=== PATIENT | male | born 1995 | race Caucasian/White ===

== ENCOUNTER 2017-04-09 14:31 | Emergency (ER) | payer OTHER ==
[~2017-04-09] VITALS: Ht 170.2 cm; Wt 131.0 kg
[2017-04-09 14:46] VITALS: TEMP 36.9; Ht 170.2 cm; Wt 131.0 kg
[2017-04-09] MEDS ORDERED: IBUPROFEN 600 MG TAB PO STA (15:50)
--- NOTE | 2017-04-09 16:27 | DIAGNOSTIC IMAGING REPORT ---
LEFT KNEE 3 VIEWS CLINICAL HISTORY: Fall with left knee pain. FINDINGS: AP, crosstable lateral, and sunrise views of the left knee are obtained. No prior studies are available for comparison at the time of dictation. The skeletal structures are well mineralized. No fracture is seen. The joint spaces of the knee are well-maintained. A calcified fabella is incidentally noted. A small joint effusion is observed. Mild soft tissue edema is noted around the knee IMPRESSION: Mild soft tissue swelling and joint effusion. No fracture is seen. Electronically signed by: Ryan Brasher M.D. 04/09/2017 4:26 PM Dictated Date/Time: 04/09/2017 4:25 PM
[2017-04-09] MEDS ORDERED: HYDR-5688 PO (16:43)
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
[2017-04-09 17:04] VITALS: BP 123/90; PULSE 93; O2SAT 97
== END 2017-04-09 17:05 | disposition home or self-care (01) ==
LOC: C.EDB 14:35 → C.EDD 17:05
DX: M25.562 Pain in left knee (principal)

== ENCOUNTER → 2017-11-16 | Outpatient (CLI) | payer OTHER ==
[~2017-11-16] MED LIST: ACET-1256 PO; ASPI81TA28 PO; OXYC-57 PO; OXYC1TAB3 PO
[2017-11-16 10:09] LABS: BASO % 0.4 %; BASO ABS # 0.03 K/uL (0-0.2); EOS % 3.4 %; EOS ABS # 0.24 K/uL (0-0.5); HEMATOCRIT 42.9 % (42-52); IG# 0.03 K/uL (0.00-0.02); LYMPH % 28.7 %; LYMPH ABS # 2.01 K/uL (1.2-3.4); MEAN CELL VOLUME 90.3 fL (80-100); MEAN CORPUSCULAR HEMOGLOBIN 31.6 pg (25-34); MEAN PLATELET VOLUME 11.6 fL (7.4-10.4); MONO % 9.9 %; MONO ABS # 0.69 K/uL (0.11-0.59); NEUT % 57.2 %; PLATELET COUNT 209 K/uL (130-400); RED CELL DISTRIBUTION WIDTH CV 12.9 % (11.5-14.5); RED CELL DISTRIBUTION WIDTH SD 42.5 fL (36.4-46.3)
[2017-11-16 10:19] LABS: BLOOD UREA NITROGEN 14 mg/dl (7-18); CALCIUM 9.3 mg/dl (8.5-10.1); CARBON DIOXIDE 31 mmol/L (21-32); CREATININE 1.15 mg/dl (0.60-1.40); GLUCOSE 89 mg/dl (70-99); SODIUM 138 mmol/L (136-145)
== END | disposition home or self-care (01) ==
LOC: C.LAB1850 08:57
PROVIDERS: ATTEND Orthopaedic Surgery Sports Medicine
DX: Z01.818 Encounter for other preprocedural examination (principal)

== ENCOUNTER 2017-11-23 11:56 | Day surgery (SDC) | payer OTHER ==
[2017-11-14 11:53] VITALS: Ht 172.7 cm; Wt 127.3 kg
--- NOTE | 2017-11-22 21:57 | History and Physical ---
History & Physical Date Nov 22, 2017. Chief Complaint left ankle pain History of Present Illness The patient is a 22 year old male with complaints of left ankle pain after a work injury sustained on 11.05.17. X-rays noted a left ankle tibial pilon fx. He has been splinted and kept NWB on the LLE. He is being set up for ORIF of the fx. Past Medical/Surgical History PMH: Obesity Past surgical hx: Right knee ACL/meniscus surgery in 2010, Left knee meniscus 2016 Social hx: Denies tobacco and alcohol use. Allergies Coded Allergies: No Known Allergies (Unverified , 11/14/17) Home Medications Scheduled PRN Acetaminophen (Tylenol), 500 MG PO DAILY PRN for Pain Oxycodone Ir (Roxicodone Ir), 5 MG PO HS PRN for Severe Pain Physical Examination Skin: warm/dry, no rash Eyes: normal inspection ENT: normal ENT inspection Head: normocephalic, atraumatic Neck: supple, no adenopathy, trachea midline Respiratory/Chest: lungs clear, normal breath sounds, no respiratory distress Cardiovascular: regular rate, rhythm, no murmur Abdomen / GI: normal bowel sounds, non tender Extremities: + pertinent finding (Left ankle: NWB LLE. +swelling of the ankle. No ROM or strength testing performed. Tender anterior ankle and distal tibia. ) Neurologic/Psych: no motor/sensory deficits, alert, oriented x 3 Diagnosis Left tibial pilon fx. Plan of Treatment Recommend an ORIF left tibial pilon fx. All potential risks, benefits, complications, alternatives, and rehab have been discussed and he wishes to proceed. He will be scheduled for 11.23.17 with plan for ASA 81 mg BID x 6 wks for DVT prophylaxis.
[~2017-11-23] VITALS: Ht 172.7 cm; Wt 127.3 kg
[~2017-11-23 11:56] MED LIST changes: -ASPI81TA28 PO; +CEFAZOLIN 3000MG IV PUSH 15 ML IV SCH; +LACTATED RINGER'S 1000ML 1,000 ML IV SCH; -OXYC-57 PO
[2017-11-23 12:26] VITALS: BP 158/93; PULSE 71; TEMP 36.9; O2SAT 98
[2017-11-23] MEDS ORDERED: MIDAZOLAM HCL 1 MG/ML 2ML VIAL ONE ×2 (14:31→14:32)
[2017-11-23] MEDS ORDERED: LIDOCAINE HCL 2% 2 ML VIAL (20MG/ML) ONE (14:31)
[2017-11-23] MEDS ORDERED: PROPOFOL IV EMULSION 10 MG/ML 20 ML VIAL IV ONE ×2 (14:31→17:33)
[2017-11-23] MEDS ORDERED: FENTANYL CITRATE INJ 50 MCG/1 ML 2 ML VIAL ONE ×4 (14:32→18:10)
[2017-11-23] MEDS ORDERED: ROCURONIUM BROMIDE 10 MG/ML 5 ML VIAL IV ONE (14:33)
[2017-11-23] MEDS ORDERED: ROPIVACAINE 0.5% 5 MG/ML 30 ML VIAL ONE (14:46)
[2017-11-23] MEDS ORDERED: BUPIVACAINE 0.25% 30 ML VIAL ONE (14:46)
[2017-11-23] MEDS ORDERED: BUPIVACAINE 0.5 % 5 MG/1 ML PF 10ML VIAL ONE ×2 (14:49→14:50)
[2017-11-23] MEDS ORDERED: EpINEphrine HCL INJ 1 MG/ML 5ML SYRINGE ONE (15:04)
[2017-11-23] MEDS ORDERED: BUPIVACAINE 0.5 % 5 MG/1 ML MPF 30ML VIAL ONE (15:04)
--- NOTE | 2017-11-23 15:05 | History & Physical Bridge Note ---
H&P Re-Evaluation Bridge Note: I have examined the patient, reviewed the History & Physical and in the interval since the performance of the History & Physical I have noted the following changes of clinical significance: No changes noted
[2017-11-23] MEDS ORDERED: BACITRACIN 50000 UNIT VIAL ONE (15:13)
--- NOTE | 2017-11-23 15:26 | Discharge Instructions ---
Discharge Instructions Date of Service Nov 23, 2017. Admission Reason for Admission: Displaced Pilon Closed Fracture Of Left Tibia Discharge Discharge Diagnosis / Problem: left tibial pilon fracture Discharge Goals Goal(s): Decrease discomfort, Improve function Activity Recommendations Activity Limitations: per Instructions/Follow-up section Weightbearing Status: Left non-weightbearing . Instructions / Follow-Up Instructions / Follow-Up ACTIVITY RECOMMENDATIONS: Limitations: No weight bearing to affected limb at all times. SPECIAL CARE INSTRUCTIONS: * Some drainage onto the dressing is normal and is no cause for alarm. * Some swelling is natural especially after walking. * When resting, keep your foot elevated above the level of your heart. * Call [facility] if you notice: -Increased drainage -Fever over 101 degrees F -Severe constant pain BANDAGE: * Leave bandage/cast in place unless otherwise directed. * Keep bandage/cast dry at all times. FOLLOW UP VISIT WITH DR. SHETTY If appointment is not already scheduled: Please call [facility] after you get home today to schedule a follow-up appointment for [address] Shetty at . Current Hospital Diet Patient's current hospital diet: Discharge Diet Recommended Diet: Regular Diet Pending Studies Studies pending at discharge: no Medical Emergencies . Who to Call and When: Medical Emergencies: If at any time you feel your situation is an emergency, please call [phone] immediately. . Non-Emergent Contact Non-Emergency issues call your: Surgeon Call Non-Emergent contact if: temperature is above 101, your pain is not controlled, your pain is worsening . "Provider Documentation" section prepared by Oscar Biggs. . VTE Core Measure Inpt VTE Proph given/why not?: SCD's
[2017-11-23] MEDS ORDERED: OXYC-57 PO (15:30)
[2017-11-23] MEDS ORDERED: ASPI81TA28 PO (15:30)
[2017-11-23] MEDS ORDERED: ONDANSETRON INJ 2 MG/ML 2 ML VIAL ONE (17:09)
[2017-11-23] MEDS ORDERED: DEXAMETHASONE SOD INJ 4 MG/ML VIAL ONE (17:09)
[2017-11-23] MEDS ORDERED: GLYCOPYRROLATE INJ 0.2 MG/ML VIAL ONE (17:09)
[2017-11-23] MEDS ORDERED: NEOSTIGMINE METHYLSULFATE 5 MG/5 ML SYR ONE (17:09)
--- NOTE | 2017-11-23 17:33 | [facility] Post Operative Brief Note ---
Immediate Operative Summary Operative Date Nov 23, 2017. Pre-Operative Diagnosis Left displaced intraarticular tibial pilon fracture Post-Operative Diagnosis Left displaced intraarticular tibial pilon fracture Procedure(s) Performed Left Open Reduction Internal Fixation Tibial Pilon Fracture with Synthes locking distal tibial plate Surgeon Dr Frederic Grande [employer] Physician Surgeon(s) Pao Biggs PA-C Estimated Blood Loss 4ml Findings See dict Specimens None per surgeon Drains None Anesthesia GETT w/ popliteal and adductor canal blocks Complication(s) None Disposition Recovery Room / PACU
--- NOTE | 2017-11-23 17:40 | DIAGNOSTIC IMAGING REPORT ---
L ANKLE 2 VIEWS CLINICAL HISTORY: LT ORIF TIBIAL PILON fracture TECHNIQUE: Image intensifier COMPARISON STUDY: None FINDINGS: Image intensifier was utilized for an operative procedure including internal fixation of the distal tibia. IMPRESSION: Image intensifier usage for orthopedic intraoperative planning purposes. The above report was generated using voice recognition software. It may contain grammatical, syntax or spelling errors. Electronically signed by: Cordell Bautista M.D. 11/23/2017 5:39 PM Dictated Date/Time: 11/23/2017 5:38 PM
[2017-11-23] MEDS ORDERED: HYDROmorphone INJ 2 MG/ML SYR/VIAL ONE (17:56)
[2017-11-23] MEDS ORDERED: OXYCODONE/ACETAMINOPHEN 5-325 TAB PO PRN (18:00)
[2017-11-23] MEDS ORDERED: HYDROmorphone INJ 1 MG/ML SYR ONE (18:10)
[2017-11-23] MEDS ORDERED: ACETAMINOPHEN 1000 MG/100 ML IV IV ONE ×2 (18:11→18:15)
[2017-11-23] MEDS ORDERED: KETOROLAC TROMETHAMINE 30 MG/ML VIAL ONE (18:11)
[2017-11-23] MEDS ORDERED: HYDROmorphone INJ 1 MG/ML SYR IV PRN (18:15)
[2017-11-23] MEDS ORDERED: ATROPINE SULFATE 0.1 MG/ML 5ML SYR IV PRN (18:15)
[2017-11-23] MEDS ORDERED: KETOROLAC TROMETHAMINE 30 MG/ML VIAL IV. PRN (18:15)
[2017-11-23] MEDS ORDERED: ONDANSETRON INJ 2 MG/ML 2 ML VIAL IV PRN (18:15)
[2017-11-23] MEDS ORDERED: FENTANYL CITRATE INJ 50 MCG/1 ML 2 ML VIAL IV PRN (18:15)
[2017-11-23] MEDS ORDERED: PROMETHAZINE HCL INJ 12.5 MG in SODIUM CHLORIDE 0.9% 50ML 50 ML IV PRN (18:15)
[2017-11-23] MEDS ORDERED: EpHEDrine SULFATE INJ 50 MG/ML AMP IV PRN (18:15)
--- NOTE | 2017-11-23 18:31 | Anesthesiology Progress Note ---
Anesthesia Post Op Note Date & Time Nov 23, 2017 at 18:31 Vital Signs Pain Intensity: 3 Vital Signs Past 12 Hours Date Time Temp Pulse Resp B/P (MAP) Pulse Ox O2 Delivery O2 Flow Rate FiO2 11/23/17 18:20 109 18 145/82 96 Oxymask 8 11/23/17 18:10 106 20 137/90 100 Oxymask 8 11/23/17 18:01 36.2 113 16 118/80 97 Oxymask 8 11/23/17 12:26 36.9 71 20 158/93 (114) 98 Room Air Notes Mental Status: alert / awake / arousable, participated in evaluation Pt Amnestic to Procedure: Yes Nausea / Vomiting: adequately controlled Pain: adequately controlled Airway Patency, RR, SpO2: stable & adequate BP & HR: stable & adequate Hydration State: stable & adequate Anesthetic Complications: no major complications apparent
[2017-11-23 18:48] VITALS: BP 140/71; PULSE 116; TEMP 36.9; O2SAT 99
[2017-11-23 19:20] VITALS: BP 132/72; PULSE 124; TEMP 36.9; O2SAT 97
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
== END 2017-11-23 19:45 | disposition home or self-care (01) ==
LOC: C.ACU 11:56
PROVIDERS: ATTEND Orthopaedic Surgery Sports Medicine
DX: S82.872A Displaced pilon fracture of left tibia, initial encounter for closed fracture (principal); V89.2XXA Person injured in unspecified motor-vehicle accident, traffic, initial encounter; I10 Essential (primary) hypertension; E66.01 Morbid (severe) obesity due to excess calories; Z98.890 Other specified postprocedural states; Z68.41 Body mass index [BMI] 40.0-44.9, adult; Z88.5 Allergy status to narcotic agent

== ENCOUNTER 2021-08-16 10:56 | Inpatient (IN) ==
[2021-08-16] MEDS ORDERED: ONDANSETRON INJ 2 MG/ML 2 ML VIAL IV STA (11:51)
[2021-08-16] MEDS ORDERED: SODIUM CHLORIDE 0.9% 1000ML 1,000 ML IV ONE (11:51)
[2021-08-16] MEDS ORDERED: ACETAMINOPHEN 1,000 MG/100 ML VIAL IV STA (11:51)
[2021-08-16 12:19] LABS: D Dimer 690 ug/L FEU (0-500)
[2021-08-16 12:23] LABS: Base Excess VBG 3.4 mEq/L; pH VBG 7.47 (7.36-7.41)
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
[2021-08-16 12:27] LABS: Alanine Aminotransferase 46 U/L (12-78); Albumin Level 3.6 gm/dl (3.4-5.0); Aspartate Aminotransferase 75 U/L (15-37); BUN Creatinine Ratio 16.7 (10-20); Blood Urea Nitrogen 19 mg/dl (7-18); Calcium 8.5 mg/dl (8.5-10.1); Carbon Dioxide 29 mmol/L (21-32); Chloride 97 mmol/L (98-107); Creatinine Clr Calc Pharmacy 126.5 ml/min; Est GFR (African American) 104.1 ml/min; Est GFR (Non-African American) 89.8 ml/min; Glucose 144 mg/dl (70-99); Potassium 3.1 mmol/L (3.5-5.1); Sodium 131 mmol/L (136-145)
[2021-08-16] MEDS ORDERED: dexAMETHasone 6 MG in SYRINGE 0 ML IV ONE (12:29)
[2021-08-16] MEDS ORDERED: ALBUT/IPRATROP 3MG/0.5MG NEB 3 ML VIAL NEB STA (12:29)
[2021-08-16 12:32] LABS: ALC (manual) 1.18 K/uL (1.2-3.4); ANC (manual) 3.09 K/uL (1.4-6.5); Albumin Globulin Ratio 0.8 (0.9-2); Alkaline Phosphatase 43 U/L (45-117); Bilirubin,Total 0.5 mg/dl (0.2-1); Globulin 4.3 gm/dl (2.5-4.0); Hematocrit (blood only) 44.1 % (42-52); Hemoglobin 15.8 g/dL (14.0-18.0); Lymphocytes # (manual) 0.57 K/uL (1.2-3.4); Lymphocytes % (manual) 12.2 %; Mean Corpuscular Hgb Conc 35.8 g/dL (32-36); Mean Corpuscular Volume 89.5 fL (80-100); Mean Platelet Volume 12.5 fL (7.4-10.4); Monocytes # (manual) 0.37 K/uL (0.11-0.59); Monocytes % (manual) 7.8 %; Myelocytes # (manual) 0.04 K/uL (0-0); Myelocytes % (manual) 0.9 %; Neutrophils # (manual) 3.09 K/uL (1.4-6.5); Neutrophils % (manual) 66.1 %; Platelet Count 107 K/uL (130-400); Platelet Estimate Decreased (Normal); RDW Coefficient of Variation 12.8 % (11.5-14.5); RDW Standard Deviation 41.8 fL (36.4-46.3); Reactive Lymphocytes # (manual) 0.61 K/uL; Red Blood Count 4.93 M/uL (4.7-6.1); Total Protein 7.9 gm/dl (6.4-8.2); Troponin I < 0.015 ng/ml (0-0.045); White Blood Count 4.68 K/uL (4.8-10.8)
[2021-08-16] MEDS ORDERED: POTASSIUM CHLORIDE / WTR 10 MEQ/100 ML PLCT IV ONE (12:41)
[2021-08-16] MEDS ORDERED: OPTIRAY 320 125ml IV ONE (12:56)
[2021-08-16] MEDS: DEXAMETHASONE SOD INJ 4 MG/ML VIAL ONE ×2 (13:04→14:42)
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
[2021-08-16 13:14] LABS: C Reactive Protein 2.85 mg/dl (0-0.29)
--- NOTE | 2021-08-16 13:15 | CT Scan Report ---
CT ANGIOGRAM OF THE CHEST CLINICAL HISTORY: Cough and dyspnea. Covid. COMPARISON STUDY: Chest x-ray performed the same day 08/16/2021. TECHNIQUE: Following the IV administration of 111 cc of Optiray 320, CT angiogram of the chest was pe rformed from the upper abdomen to the thoracic inlet utilizing the pulmonary embolus protocol. Images are reviewed in the axial, sagittal, and coronal planes. 3-D MIPS images are created and assessed. I V contrast was administered without complication. A dose lowering technique was utilized adhering to the principles of ALARA. There is suboptimal contrast opacification of the pulmonary arteries. CT DOSE: 777.88 mGy.cm FINDINGS: Thyroid: Imaged portions of the thyroid gland are normal in size and attenuation. A 14 mm low-attenua tion nodule is noted in the left lobe. Thoracic aorta: The thoracic aorta is normal in caliber and demonstrates standard 3-vessel arch anato my. No dissection is seen. Pulmonary vasculature: The pulmonary trunk is normal in caliber. There are no filling defects identif ied in main, lobar, or segmental pulmonary branches to suggest pulmonary embolus. Heart: The heart is normal in size and without pericardial effusion. Lungs and pleural spaces: Multifocal airspace consolidation is seen throughout both lungs, most confl uent at the lung bases. No pleural effusion is identified. The trachea and central airways are clear. There are scattered calcified granulomas. Mediastinum: There are mildly enlarged mediastinal lymph nodes. A subcarinal node measures 1.8 cm in short axis. High right peritracheal nodes measure up to 0.8 cm in short axis. Amanda: There is bilateral hilar adenopathy. Hilar nodes measure up to 1.4 cm in short axis. Axillae: There is no axillary lymphadenopathy. Upper abdomen: There is a small hiatal hernia. The distal esophagus appears circumferentially thick w alled. The liver is steatotic. The spleen is mildly enlarged measuring 14.6 cm in length. Skeletal structures: No lytic or blastic bony lesions are seen. IMPRESSION: 1. There is no evidence of pulmonary embolus in the main, lobar, or segmental pulmonary arteries. 2. Multifocal airspace consolidation is consistent with the reported history of a viral pneumonia. Ra diographic follow-up to resolution is recommended. 3. Mediastinal and hilar lymphadenopathy is likely reactive. 4. Splenomegaly. 5. The esophageal wall appears circumferentially thickened. Correlate clinically for evidence of esop hagitis. 6. Hepatic steatosis. ACT 112: Negative or not required by law. Electronically signed by: Ryan Brasher M.D. 08/16/2021 1:14 PM
--- NOTE | 2021-08-16 13:18 | XRay Report ---
SINGLE VIEW CHEST CLINICAL HISTORY: Cough. Covid. FINDINGS: An AP, portable, upright chest radiograph is obtained. No prior studies are available for c omparison at the time of dictation. The cardiomediastinal silhouette is unremarkable. There are low lung volumes. Multifocal airspace consolidation is seen throughout both lungs. No large pleural effus ion or pneumothorax is identified. The bony thorax is grossly intact. IMPRESSION: Multifocal airspace consolidation is consistent with the reported history of a viral pneu monia. Radiographic follow-up to resolution is recommended. ACT 112: Negative or not required by law. Electronically signed by: Ryan Brasher M.D. 08/16/2021 1:17 PM
[2021-08-16] MEDS ORDERED: REMDESIVIR 200 MG in SODIUM CHLORIDE 0.9% 210 ML IV STA (13:59)
[2021-08-16] MEDS ORDERED: POTASSIUM CHLORIDE / WTR 10 MEQ/100 ML PLCT IV STA (13:59)
[2021-08-16] MEDS ORDERED: ALBUTEROL 0.083% NEBU SOLN 3 ML VIAL NEB PRN (14:06)
[2021-08-16] MEDS: LACTATED RINGER'S 1,000 ML IV SCH ×2 (14:30→21:59)
[2021-08-16] MEDS ORDERED: ONDANSETRON INJ 2 MG/ML 2 ML VIAL IV PRN (20:31)
[2021-08-16] MEDS ORDERED: ACETAMINOPHEN 325 MG TAB PO PRN (20:31)
[2021-08-16] MEDS ORDERED: ALUMINUM/MAGNESIUM SUSP 30 ML UDC PO PRN (20:31)
[2021-08-16] MEDS ORDERED: LOPERAMIDE HCL 2 MG CAP PO PRN (20:31)
[2021-08-16] MEDS ORDERED: MAGNESIUM SULFATE / D5W 1 GM/100 ML BAG IV ONE (21:30)
[2021-08-16] MEDS: ENOXAPARIN INJ 40 MG/0.4 ML SYR SQ SCH (21:58)
[2021-08-16 22:00] LABS: Magnesium 2.2 mg/dl (1.8-2.4)
[2021-08-16] MEDS: SODIUM CHLORIDE 0.9% 10ML FLUSH IV SCH (22:09)
[2021-08-16] MEDS: POTASSIUM CHLORIDE / WTR 10 MEQ/100 ML PLCT IV SCH (22:49)
[2021-08-17] MEDS: POTASSIUM CHLORIDE / WTR 10 MEQ/100 ML PLCT IV SCH ×3 (00:57→04:44)
[2021-08-17] MEDS ORDERED: COUGH DROP (SUGAR FREE) LOZ 24 LOZ/1 BOX BUCCAL PRN (02:43)
[2021-08-17] MEDS ORDERED: COUGH DROP (SUGAR FREE) LOZ 24 LOZ/1 BOX BUCCAL ONE (02:48)
[2021-08-17] MEDS ORDERED: POTASSIUM CHLORIDE / WTR 10 MEQ/100 ML PLCT IV SCH (04:45)
--- NOTE | 2021-08-17 07:33 | Hospitalist Progress Note ---
Date of Service August 17, 2021 Assessment & Plan (1) Pneumonia due to COVID-19 virus: Plan: Patient with symptoms that started on 08/08, here with pneumonia and acute respiratory failure with hypoxia, severe dehydration secondary to nausea/vomiting/diarrhea CT angiogram chest negative for PE but shows multifocal pneumonia slight increase in oxygen requirements, up to 6-7 L today could not lay prone, severe coughing spells immediately told him he needs to lay on his side if he cannot lay prone -Admit to medical floor telemetry on Covid unit -Continue dexamethasone 6 mg IV once daily, day 2 -Remdesivir x5-day course, day 3 -Continue supplemental O2 to keep pulse ox greater than 92% -Albuterol nebulizer as needed -Robitussin-DM ordered as needed as well as Tessalon Perles for cough flutter valve, incentive spirometer (2) Acute respiratory failure with hypoxia: Plan: As above oxygen requirements going up slightly continue to monitor (3) Nausea vomiting and diarrhea: Plan: Secondary to Covid-19, with significant hyponatremia, hypokalemia, and inability to tolerate any p.o. except for small sips of water for several days Fortunately renal function is stable Received 1 L normal saline in the ER, will give 2 more liters of LR Cr stable, K stable IV Zofran as needed for vomiting Add Imodium as needed for diarrhea (4) Thrombocytopenia: Plan: Platelets mildly low at 107 secondary to COVID-19 pneumonia plts up to 123k today Okay to give Lovenox for DVT prophylaxis unless platelets drop less than 50 (5) Hyponatremia: Plan: As above, secondary to dehydration Sodium is 137 (6) Hypokalemia: Plan: As above, secondary to GI losses and poor p.o. intake Give a total of 50 mEq of potassium chloride IV K is 3.9 today (7) Transaminitis: Plan: Mild, secondary to Covid-19, but also has underlying fatty liver AST minimally elevated, ALT normal (8) Fatty liver: Plan: Noted on CT abdomen/pelvis BMI is 40.6 Encouraged weight loss and low carbohydrate diet after discharge (9) Thyroid nodule: Plan: Incidentally noted left lobe of the thyroid nodule measuring 1.4 cm Recommended to patient that he have an outpatient thyroid ultrasound and follow- up with PCP TSH normal at 0.9 (10) Obesity: Plan: BMI 40.6 As above, recommended weight loss (11) Splenomegaly: Plan: Patient with mild to moderate splenomegaly seen on CT abdomen/pelvis Unclear if could be from viral infection but could be chronic from fatty liver Follow as an outpatient Plan: DVT prophylaxis-Lovenox 40 mg SQ twice daily Disposition-admit to medical floor telemetry on Covid [place] Admission and Anticipated Discharge Date Admission Date: August 16, 2021 Subjective patient is slowly requiring more oxygen, he tried to lay prone but it triggered intense coughing he can lay on his left side eating okay, some nausea but no vomiting had some diarrhea again this morning, took him 10 minutes to clean himself, he was very short of breath afterwards has some coughing spells but not intense reviewed chart, reviewed labs discussed that he needs to take this one day at a time, don't be alarmed if he needs more oxygen before he gets better Review of Systems 2 Review of Systems: All systems reviewed & are unremarkable except as noted in Subjective Constitutional: + body aches, + fatigue and + weakness; no fever Respiratory: + cough and + dyspnea Cardiovascular: no chest pain and no edema Gastrointestinal: + nausea and + diarrhea/loose stools; no abdominal pain, no vomiting, no constipation, no blood in stools and no melena Physical Exam Physical Exam: General: well developed, well nourished, no acute distress, ill appearing, diaphoretic Neck: supple, trachea midline, normal thyroid Lungs: crackles bilaterally, + tachypnea, slight accessory muscle use, no distress Heart: regular S1 and S2, no murmur, peripheral pulses normal, capillary refill normal, no edema Abdomen: soft, NT, ND, + BS, no hepatomegaly, normal to percussion Extremities: normal in appearance, no cyanosis, no petechiae, strength is 5/5 bilaterally Neuro: awake, cooperative, moves all extremities, no focal motor deficits, CN II-XII intact, sensation in extremities intact, normal speech Skin: warm, dry, no rash, normal turgor Psych: Awake, alert oriented x 3, euthymic affect Results & Data Results & Data ([facility]) Vital Signs (Past 12 Hours) Vital Signs Temp Pulse Pulse Resp BP Pulse Ox 08/17/21 04:28 37.0 C 84 21 128/69 91 08/16/21 23:28 37.1 C 80 20 108/65 91 08/16/21 23:00 83 08/16/21 20:33 37 C 88 18 131/77 93 08/16/21 20:09 141/82 H Laboratory Results Laboratory Results - last 24 hr 08/16/21 08/17/21 08/17/21 11:30 06:45 06:45 WBC 6.32 RBC 4.71 Hgb 15.0 Hct 42.5 MCV 90.2 MCH 31.8 MCHC 35.3 RDW Std Deviation 42.8 RDW Coeff of Michael 12.9 Plt Count 123 L MPV 12.1 H Immature Gran % (Auto) 0.3 Neut % (Auto) 73.4 Lymph % (Auto) 17.6 Frederick % (Auto) 8.5 Eos % (Auto) 0.0 Baso % (Auto) 0.2 Neut # (Auto) 4.64 Lymph # (Auto) 1.11 L Frederick # (Auto) 0.54 Eos # (Auto) 0.00 Baso # (Auto) 0.01 Immature Gran # (Auto) 0.02 Sodium 137 Potassium 3.9 D Chloride 102 Carbon Dioxide 28 Anion Gap 7.0 BUN 16 Creatinine 0.85 Est Cr Clr Drug Dosing 168.9 Est GFR ( Amer) 140.4 Est GFR (Non-Af Amer) 121.1 BUN/Creatinine Ratio 18.4 Glucose 120 H Calcium 8.4 L Magnesium 2.2 2.6 H Total Bilirubin 0.5 AST 68 H ALT 52 Alkaline Phosphatase 38 L C-Reactive Protein 2.09 H Total Protein 7.0 Albumin 3.1 L Globulin 3.9 Albumin/Globulin Ratio 0.8 L Procalcitonin TSH 0.934 08/17/21 06:45 WBC RBC Hgb Hct MCV MCH MCHC RDW Std Deviation RDW Coeff of Michael Plt Count MPV Immature Gran % (Auto) Neut % (Auto) Lymph % (Auto) Frederick % (Auto) Eos % (Auto) Baso % (Auto) Neut # (Auto) Lymph # (Auto) Frederick # (Auto) Eos # (Auto) Baso # (Auto) Immature Gran # (Auto) Sodium Potassium Chloride Carbon Dioxide Anion Gap BUN Creatinine Est Cr Clr Drug Dosing Est GFR ( Amer) Est GFR (Non-Af Amer) BUN/Creatinine Ratio Glucose Calcium Magnesium Total Bilirubin AST ALT Alkaline Phosphatase C-Reactive Protein Total Protein Albumin Globulin Albumin/Globulin Ratio Procalcitonin < 0.05 TSH Medications Administered Current Inpatient Medications Acetaminophen (Acetaminophen 325 Mg Tab) 650 mg PO Q4H PRN PRN Reason: Pain or Fever Stop: 09/15/21 20:30 Al Hydrox/Mg Hydrox/Simethicone (Aluminum/Magnesium Susp 30 Ml Udc) 15 ml PO Q4H PRN PRN Reason: Dyspepsia Stop: 09/15/21 20:30 Albuterol (Albuterol 0.083% Nebu Soln 3 Ml Vial) 2.5 mg NEB Q6R PRN PRN Reason: cough or SOB Stop: 09/15/21 14:05 Benzonatate (Benzonatate 100 Mg Capsule) 100 mg PO TID PRN PRN Reason: Cough Stop: 09/15/21 20:30 Enoxaparin Sodium (Enoxaparin Inj 40 Mg/0.4 Ml Syr) 40 mg SQ Q12H TATI Stop: 09/15/21 20:30 Last Admin: 08/17/21 21:09 Dose: 40 mg Documented by: Guaifenesin/Dextromethorphan (Guaifenesin/Dextrom Syrup 200mg/20mg 10ml Udc) 10 ml PO Q6H PRN PRN Reason: Cough Stop: 09/15/21 20:30 Last Admin: 08/17/21 07:41 Dose: 10 ml Documented by: Remdesivir 100 mg/ Sodium (Chloride) 250 mls @ 250 mls/hr IV Q24H TATI; Protocol Stop: 08/20/21 12:59 Last Infusion: 08/17/21 13:27 Dose: Infused Documented by: Dexamethasone 6 mg/ Syringe 1.5 mls @ 1 mls/min IV DAILY TATI Stop: 08/26/21 08:59 Last Admin: 08/17/21 09:20 Dose: 1 mls/min Documented by: Loperamide HCl (Loperamide Hcl 2 Mg Cap) 2 mg PO Q6 PRN PRN Reason: diarrhea Stop: 09/15/21 20:30 Menthol (Cough Drop (Sugar Free) Sheba 24 Sheba/1 Box) 1 sheba BUCCAL PRN PRN PRN Reason: Sore Throat Stop: 09/16/21 02:42 Ondansetron HCl (Ondansetron Inj 2 Mg/Ml 2 Ml Vial) 4 mg IV Q6H PRN PRN Reason: Nausea Stop: 09/15/21 20:30 Sodium Chloride (Sodium Chloride 0.9% 10ml Flush) 30 ml IV Q24H TATI Stop: 08/20/21 20:32 Last Admin: 08/17/21 13:27 Dose: 30 ml Documented by: PG Care Time/CCT Total # of Minutes Spent Total Time Spent with Patient: Total time spent is greater than 50% in coordination of care (as documented) at patient's floor/unit and/or counseling patient: Coding Level of Care Code 37074 Subseq Hosp Care Lvl 3 Diagnoses Pneumonia due to COVID-19 virus U07.1; J12.82 Acute respiratory failure with hypoxia J96.01 Nausea vomiting and diarrhea R11.2; R19.7 Thrombocytopenia D69.6 Hyponatremia E87.1 Hypokalemia E87.6 Transaminitis R74.01 Fatty liver K76.0 Thyroid nodule E04.1 Obesity E66.9 Splenomegaly R16.1
[2021-08-17 07:37] LABS: Albumin Level 3.1 gm/dl (3.4-5.0); BUN Creatinine Ratio 18.4 (10-20); Calcium 8.4 mg/dl (8.5-10.1); Creatinine Clr Calc Pharmacy 168.9 ml/min; Est GFR (African American) 140.4 ml/min; Est GFR (Non-African American) 121.1 ml/min; Magnesium 2.6 mg/dl (1.8-2.4); Potassium 3.9 mmol/L (3.5-5.1)
[2021-08-17] MEDS: guaiFENesin/DEXTROM SYRUP 200MG/20MG 10ML UDC PO PRN (07:41)
[2021-08-17 07:47] LABS: Albumin Globulin Ratio 0.8 (0.9-2); Basophils # (auto) 0.01 K/uL (0-0.2); Basophils % (auto) 0.2 %; Bilirubin,Total 0.5 mg/dl (0.2-1); C Reactive Protein 2.09 mg/dl (0-0.29); Globulin 3.9 gm/dl (2.5-4.0); Hematocrit (blood only) 42.5 % (42-52); Immature Granulocytes # (auto) 0.02 K/uL (0.00-0.02); Immature Granulocytes % (auto) 0.3 %; Lymphocytes # (auto) 1.11 K/uL (1.2-3.4); Lymphocytes % (auto) 17.6 %; Mean Corpuscular Hemoglobin 31.8 pg (25-34); Mean Corpuscular Hgb Conc 35.3 g/dL (32-36); Mean Corpuscular Volume 90.2 fL (80-100); Mean Platelet Volume 12.1 fL (7.4-10.4); Monocytes # (auto) 0.54 K/uL (0.11-0.59); Monocytes % (auto) 8.5 %; Neutrophils # (auto) 4.64 K/uL (1.4-6.5); Neutrophils % (auto) 73.4 %; Platelet Count 123 K/uL (130-400); RDW Coefficient of Variation 12.9 % (11.5-14.5); RDW Standard Deviation 42.8 fL (36.4-46.3); Red Blood Count 4.71 M/uL (4.7-6.1); Thyroid Stimulating Hormone 0.934 uIu/ml (0.300-4.500); White Blood Count 6.32 K/uL (4.8-10.8)
[2021-08-17] MEDS: ENOXAPARIN INJ 40 MG/0.4 ML SYR SQ SCH ×2 (09:20→21:09)
[2021-08-17] MEDS: dexAMETHasone 6 MG in SYRINGE 0 ML IV SCH (09:20)
[2021-08-17] MEDS: REMDESIVIR 100 MG in SODIUM CHLORIDE 0.9% 230 ML IV SCH (11:36)
[2021-08-17] MEDS: SODIUM CHLORIDE 0.9% 10ML FLUSH IV SCH (13:27)
--- NOTE | 2021-08-17 14:04 | Electrocardiogram Report ---
Test Reason : Blood Pressure : / mmHG Vent. Rate : 114 BPM Atrial Rate : 114 BPM P-R Int : 124 ms QRS Dur : 090 ms QT Int : 316 ms P-R-T Axes : 030 014 023 degrees QTc Int : 435 ms Sinus tachycardia Otherwise normal ECG No previous ECGs available Confirmed by Tip Hollins ([id number]) on 08/17/2021 2:04:27 PM Referred By: REFERRED SELF Confirmed By:Tip Hollins
[2021-08-18 07:40] LABS: Alanine Aminotransferase 69 U/L (12-78); Aspartate Aminotransferase 65 U/L (15-37)
[2021-08-18] MEDS: guaiFENesin/DEXTROM SYRUP 200MG/20MG 10ML UDC PO PRN (08:20)
[2021-08-18] MEDS: BENZONATATE 100 MG CAPSULE PO PRN (08:20)
[2021-08-18] MEDS: ENOXAPARIN INJ 40 MG/0.4 ML SYR SQ SCH ×2 (08:20→21:48)
[2021-08-18] MEDS: dexAMETHasone 6 MG in SYRINGE 0 ML IV SCH (08:20)
--- NOTE | 2021-08-18 09:44 | Hospitalist Progress Note ---
Date of Service August 18, 2021 Assessment & Plan (1) Pneumonia due to COVID-19 virus: Plan: Patient with symptoms that started on 08/08, here with pneumonia and acute respiratory failure with hypoxia, severe dehydration secondary to nausea/vomiting/diarrhea CT angiogram chest negative for PE but shows multifocal pneumonia up to 8L mask, but not in distress, able to walk in the room without desaturating laying on left side could not lay prone, severe coughing spells immediately -Continue dexamethasone 6 mg IV once daily, day 3 -Remdesivir x5-day course, day 3 -Continue supplemental O2 to keep pulse ox greater than 92% -Albuterol nebulizer as needed -Robitussin-DM ordered as needed as well as Tessalon Perles for cough flutter valve, incentive spirometer (2) Acute respiratory failure with hypoxia: Plan: As above oxygen requirements going up slightly to 8L mask but not working hard to breathe continue to monitor (3) Nausea vomiting and diarrhea: Plan: Secondary to Covid-19, with significant hyponatremia, hypokalemia, and inability to tolerate any p.o. except for small sips of water for several days Fortunately renal function is stable Received 3L of crystalloid total Cr stable, K stable IV Zofran as needed for vomiting Add Imodium as needed for diarrhea - less frequent today (4) Thrombocytopenia: Plan: Platelets mildly low at 107 secondary to COVID-19 pneumonia plts up to 123k yesterday Okay to give Lovenox for DVT prophylaxis unless platelets drop less than 50 (5) Hyponatremia: Plan: As above, secondary to dehydration resolved BMP tomorrow (6) Hypokalemia: Plan: As above, secondary to GI losses and poor p.o. intake Give a total of 50 mEq of potassium chloride IV K 3.9 yesterday BMP tomorrow (7) Transaminitis: Plan: Mild, secondary to Covid-19, but also has underlying fatty liver AST and ALT normal (8) Fatty liver: Plan: Noted on CT abdomen/pelvis BMI is 40.6 Encouraged weight loss and low carbohydrate diet after discharge (9) Thyroid nodule: Plan: Incidentally noted left lobe of the thyroid nodule measuring 1.4 cm Recommended to patient that he have an outpatient thyroid ultrasound and follow- up with PCP TSH normal at 0.9 (10) Obesity: Plan: BMI 40.6 As above, recommended weight loss (11) Splenomegaly: Plan: Patient with mild to moderate splenomegaly seen on CT abdomen/pelvis Unclear if could be from viral infection but could be chronic from fatty liver Follow as an outpatient Plan: DVT prophylaxis-Lovenox 40 mg SQ twice daily Disposition- continue on COVID floor Admission and Anticipated Discharge Date Admission Date: August 16, 2021 Subjective patient feeling a little better today less diarrhea, both volume and frequency he stood up for about 10-15 minutes this morning, got washed up, did not feel short of breath at all he is on 8L mask, saturations 92-94% while I was in the room AST and ALT essentially normal today encouraged him to try to eat, will advance his diet today check labs tomorrow had a productive coughing spell this morning, got up a lot more sputum, using flutter valve Review of Systems Review of Systems: All systems reviewed & are unremarkable except as noted in Subjective Constitutional: + fatigue; no fever and no weakness Respiratory: + cough, + chest congestion and + sputum production; no dyspnea, no dyspnea on exertion and no pain with cough Physical Exam Physical Exam: General: well developed, well nourished, no acute distress, ill appearing, diaphoretic Neck: supple, trachea midline, normal thyroid Lungs: crackles bilaterally, + tachypnea, slight accessory muscle use, no distress Heart: regular S1 and S2, no murmur, peripheral pulses normal, capillary refill normal, no edema Abdomen: soft, NT, ND, + BS, no hepatomegaly, normal to percussion Extremities: normal in appearance, no cyanosis, no petechiae, strength is 5/5 bilaterally Neuro: awake, cooperative, moves all extremities, no focal motor deficits, CN II-XII intact, sensation in extremities intact, normal speech Skin: warm, dry, no rash, normal turgor Psych: Awake, alert oriented x 3, euthymic affect Results & Data Results & Data ([facility]) Vital Signs (Past 12 Hours) Vital Signs Temp Pulse Pulse Resp BP Pulse Ox 08/18/21 07:47 36.7 C 76 20 120/73 90 08/18/21 03:49 36.6 C 84 22 114/77 92 08/18/21 00:09 36.6 C 88 22 117/78 92 08/18/21 00:00 77 Laboratory Results Laboratory Results - last 24 hr 08/18/21 06:32 AST 65 H ALT 69 Medications Administered Current Inpatient Medications Acetaminophen (Acetaminophen 325 Mg Tab) 650 mg PO Q4H PRN PRN Reason: Pain or Fever Stop: 09/15/21 20:30 Al Hydrox/Mg Hydrox/Simethicone (Aluminum/Magnesium Susp 30 Ml Udc) 15 ml PO Q4H PRN PRN Reason: Dyspepsia Stop: 09/15/21 20:30 Albuterol (Albuterol 0.083% Nebu Soln 3 Ml Vial) 2.5 mg NEB Q6R PRN PRN Reason: cough or SOB Stop: 09/15/21 14:05 Benzonatate (Benzonatate 100 Mg Capsule) 100 mg PO TID PRN PRN Reason: Cough Stop: 09/15/21 20:30 Last Admin: 08/18/21 08:20 Dose: 100 mg Documented by: Enoxaparin Sodium (Enoxaparin Inj 40 Mg/0.4 Ml Syr) 40 mg SQ Q12H TATI Stop: 09/15/21 20:30 Last Admin: 08/18/21 08:20 Dose: 40 mg Documented by: Guaifenesin/Dextromethorphan (Guaifenesin/Dextrom Syrup 200mg/20mg 10ml Udc) 10 ml PO Q6H PRN PRN Reason: Cough Stop: 09/15/21 20:30 Last Admin: 08/18/21 08:20 Dose: 10 ml Documented by: Remdesivir 100 mg/ Sodium (Chloride) 250 mls @ 250 mls/hr IV Q24H TATI; Protocol Stop: 08/20/21 12:59 Last Infusion: 08/17/21 13:27 Dose: Infused Documented by: Dexamethasone 6 mg/ Syringe 1.5 mls @ 1 mls/min IV DAILY TATI Stop: 08/26/21 08:59 Last Admin: 08/18/21 08:20 Dose: 1 mls/min Documented by: Loperamide HCl (Loperamide Hcl 2 Mg Cap) 2 mg PO Q6 PRN PRN Reason: diarrhea Stop: 09/15/21 20:30 Menthol (Cough Drop (Sugar Free) Sheba 24 Sheba/1 Box) 1 sheba BUCCAL PRN PRN PRN Reason: Sore Throat Stop: 09/16/21 02:42 Ondansetron HCl (Ondansetron Inj 2 Mg/Ml 2 Ml Vial) 4 mg IV Q6H PRN PRN Reason: Nausea Stop: 09/15/21 20:30 Sodium Chloride (Sodium Chloride 0.9% 10ml Flush) 30 ml IV Q24H TATI Stop: 08/20/21 20:32 Last Admin: 08/17/21 13:27 Dose: 30 ml Documented by: PG Care Time/CCT Total # of Minutes Spent Total Time Spent with Patient: Total time spent is greater than 50% in coordination of care (as documented) at patient's floor/unit and/or counseling patient: Coding Level of Care Code 43314 Subseq Hosp Care Lvl 3 Diagnoses Pneumonia due to COVID-19 virus U07.1; J12.82 Acute respiratory failure with hypoxia J96.01 Nausea vomiting and diarrhea R11.2; R19.7 Thrombocytopenia D69.6 Hyponatremia E87.1 Hypokalemia E87.6 Transaminitis R74.01 Fatty liver K76.0 Thyroid nodule E04.1 Obesity E66.9 Splenomegaly R16.1
[2021-08-18] MEDS: REMDESIVIR 100 MG in SODIUM CHLORIDE 0.9% 230 ML IV SCH (12:12)
[2021-08-18] MEDS: SODIUM CHLORIDE 0.9% 10ML FLUSH IV SCH (13:19)
[2021-08-19] MEDS ORDERED: FUROSEMIDE 20 MG in SYRINGE 0 ML IV ONE (07:24)
[2021-08-19] MEDS ORDERED: FUROSEMIDE 40 MG/4 ML VIAL IV ONE (07:30)
[2021-08-19 07:54] LABS: Hematocrit (blood only) 43.5 % (42-52); Mean Corpuscular Hemoglobin 31.2 pg (25-34); Mean Corpuscular Hgb Conc 34.5 g/dL (32-36); Mean Corpuscular Volume 90.4 fL (80-100); Mean Platelet Volume 12.2 fL (7.4-10.4); Platelet Count 171 K/uL (130-400); RDW Coefficient of Variation 13.1 % (11.5-14.5); RDW Standard Deviation 43.7 fL (36.4-46.3); Red Blood Count 4.81 M/uL (4.7-6.1); White Blood Count 5.58 K/uL (4.8-10.8)
[2021-08-19] MEDS: dexAMETHasone 6 MG in SYRINGE 0 ML IV SCH (08:09)
[2021-08-19] MEDS: BENZONATATE 100 MG CAPSULE PO PRN (08:09)
[2021-08-19] MEDS: ENOXAPARIN INJ 40 MG/0.4 ML SYR SQ SCH ×2 (08:09→21:03)
[2021-08-19] MEDS: guaiFENesin/DEXTROM SYRUP 200MG/20MG 10ML UDC PO PRN (08:09)
[2021-08-19 08:22] LABS: BUN Creatinine Ratio 28.7 (10-20); C Reactive Protein 0.62 mg/dl (0-0.29); Calcium 8.7 mg/dl (8.5-10.1); Creatinine Clr Calc Pharmacy 175.9 ml/min; Est GFR (African American) 142.4 ml/min; Est GFR (Non-African American) 122.9 ml/min; Potassium 3.4 mmol/L (3.5-5.1)
--- NOTE | 2021-08-19 09:21 | XRay Report ---
XR chest 1V portable HISTORY: covid pneumonia COMPARISON: Chest 08/16/2021. FINDINGS: Multifocal bilateral airspace opacities have slightly progressed. There are low lung volume s. No pneumothorax. No pleural fusions. The heart is normal in size. Bilateral hilar lymphadenopathy is again noted. No rib fractures. IMPRESSION: Mild progression of the multifocal patchy bilateral airspace opacities consistent with a viral pneumo manuela. ACT 112: Negative or not required by law. Electronically signed by: Medardo Reno M.D. 08/19/2021 9:19 AM
[2021-08-19] MEDS: REMDESIVIR 100 MG in SODIUM CHLORIDE 0.9% 230 ML IV SCH (12:01)
--- NOTE | 2021-08-19 12:37 | Hospitalist Progress Note ---
Date of Service August 19, 2021 Assessment & Plan (1) Pneumonia due to COVID-19 virus: Plan: Patient with symptoms that started on 08/08, here with pneumonia and acute respiratory failure with hypoxia, severe dehydration secondary to nausea/vomiting/diarrhea CT angiogram chest negative for PE but shows multifocal pneumonia down to 4L NC this morning from 8-9L this morning great response to Lasix 20mg IV laying on left side could not lay prone, severe coughing spells immediately -Continue dexamethasone 6 mg IV once daily, day 4 -Remdesivir x5-day course, day 4 -Continue supplemental O2 to keep pulse ox greater than 92% -Albuterol nebulizer as needed -Robitussin-DM ordered as needed as well as Tessalon Perles for cough flutter valve, incentive spirometer move to medical floor as he is stable on monitor and down to 4L hope he can be discharged in a few days (2) Acute respiratory failure with hypoxia: Plan: As above oxygen requirements down to 4L, great response to Lasix give Lasix again tomorrow continue dexamethasone (3) Nausea vomiting and diarrhea: Plan: Secondary to Covid-19, with significant hyponatremia, hypokalemia, and inability to tolerate any p.o. except for small sips of water for several days Fortunately renal function is stable Received 3L of crystalloid total Cr stable, K stable IV Zofran as needed for vomiting Add Imodium as needed for diarrhea - less frequent today (4) Thrombocytopenia: Plan: Platelets mildly low at 107 secondary to COVID-19 pneumonia plts up to 171k today Okay to give Lovenox for DVT prophylaxis unless platelets drop less than 50 (5) Hyponatremia: Plan: As above, secondary to dehydration resolved (6) Hypokalemia: Plan: K is 3.4, add PO replacement BMP tomorrow (7) Transaminitis: Plan: Mild, secondary to Covid-19, but also has underlying fatty liver AST and ALT normal (8) Fatty liver: Plan: Noted on CT abdomen/pelvis BMI is 40.6 Encouraged weight loss and low carbohydrate diet after discharge (9) Thyroid nodule: Plan: Incidentally noted left lobe of the thyroid nodule measuring 1.4 cm Recommended to patient that he have an outpatient thyroid ultrasound and follow- up with PCP TSH normal at 0.9 (10) Obesity: Plan: BMI 40.6 As above, recommended weight loss (11) Splenomegaly: Plan: Patient with mild to moderate splenomegaly seen on CT abdomen/pelvis Unclear if could be from viral infection but could be chronic from fatty liver Follow as an outpatient Plan: DVT prophylaxis-Lovenox 40 mg SQ twice daily Disposition- move to [facility] hope to discharge by Tuesday 08/21 Admission and Anticipated Discharge Date Admission Date: August 16, 2021 Subjective patient doing well, down to 4L today on nasal canula responded really well to Lasix this morning, filled up two urinals breathing easier today stools are becoming more solid today which is good, no nausea/vomiting, tolerating diet no fever/chills, Cr and K stable, CRP is < 1 this morning hoping to be discharged in 2 more days, depends on how quickly we can get him down to room air Review of Systems Review of Systems: All systems reviewed & are unremarkable except as noted in Subjective Physical Exam Physical Exam: General: well developed, well nourished, no acute distress, comfortable Neck: supple, trachea midline, normal thyroid Lungs: lungs clear bilaterally, normal respiratory effort, no accessory muscle use, no distress Heart: regular S1 and S2, no murmur, peripheral pulses normal, capillary refill normal, no edema Abdomen: soft, NT, ND, + BS, no hepatomegaly, normal to percussion Extremities: normal in appearance, no cyanosis, no petechiae, strength is 5/5 bilaterally Neuro: awake, cooperative, moves all extremities, no focal motor deficits, CN II-XII intact, sensation in extremities intact, normal speech Skin: warm, dry, no rash, normal turgor Psych: Awake, alert oriented x 3, euthymic affect Results & Data Results & Data ([facility]) Vital Signs (Past 12 Hours) Vital Signs Temp Pulse Pulse Resp BP Pulse Ox 08/19/21 11:42 36.5 C 77 20 107/58 L 92 08/19/21 08:00 36.6 C 67 68 20 117/74 93 08/19/21 06:21 70 08/19/21 04:30 37.1 C 78 20 123/74 89 L Laboratory Results Laboratory Results - last 24 hr 08/19/21 08/19/21 07:09 07:09 WBC 5.58 RBC 4.81 Hgb 15.0 Hct 43.5 MCV 90.4 MCH 31.2 MCHC 34.5 RDW Std Deviation 43.7 RDW Coeff of Michael 13.1 Plt Count 171 MPV 12.2 H Sodium 142 Potassium 3.4 L Chloride 106 Carbon Dioxide 29 Anion Gap 7.0 BUN 24 H Creatinine 0.82 Est Cr Clr Drug Dosing 175.9 Est GFR ( Amer) 142.4 Est GFR (Non-Af Amer) 122.9 BUN/Creatinine Ratio 28.7 H Glucose 102 H Calcium 8.7 AST 65 H ALT 99 H C-Reactive Protein 0.62 H Medications Administered Current Inpatient Medications Acetaminophen (Acetaminophen 325 Mg Tab) 650 mg PO Q4H PRN PRN Reason: Pain or Fever Stop: 09/15/21 20:30 Al Hydrox/Mg Hydrox/Simethicone (Aluminum/Magnesium Susp 30 Ml Udc) 15 ml PO Q4H PRN PRN Reason: Dyspepsia Stop: 09/15/21 20:30 Albuterol (Albuterol 0.083% Nebu Soln 3 Ml Vial) 2.5 mg NEB Q6R PRN PRN Reason: cough or SOB Stop: 09/15/21 14:05 Benzonatate (Benzonatate 100 Mg Capsule) 100 mg PO TID PRN PRN Reason: Cough Stop: 09/15/21 20:30 Last Admin: 08/19/21 08:09 Dose: 100 mg Documented by: Enoxaparin Sodium (Enoxaparin Inj 40 Mg/0.4 Ml Syr) 40 mg SQ Q12H TATI Stop: 09/15/21 20:30 Last Admin: 08/19/21 08:09 Dose: 40 mg Documented by: Guaifenesin/Dextromethorphan (Guaifenesin/Dextrom Syrup 200mg/20mg 10ml Udc) 10 ml PO Q6H PRN PRN Reason: Cough Stop: 09/15/21 20:30 Last Admin: 08/19/21 08:09 Dose: 10 ml Documented by: Remdesivir 100 mg/ Sodium (Chloride) 250 mls @ 250 mls/hr IV Q24H TATI; Protocol Stop: 08/20/21 12:59 Last Admin: 08/19/21 12:01 Dose: 250 mls/hr Documented by: Dexamethasone 6 mg/ Syringe 1.5 mls @ 1 mls/min IV DAILY TATI Stop: 08/26/21 08:59 Last Admin: 08/19/21 08:09 Dose: 1 mls/min Documented by: Loperamide HCl (Loperamide Hcl 2 Mg Cap) 2 mg PO Q6 PRN PRN Reason: diarrhea Stop: 09/15/21 20:30 Menthol (Cough Drop (Sugar Free) Sheba 24 Sheba/1 Box) 1 sheba BUCCAL PRN PRN PRN Reason: Sore Throat Stop: 09/16/21 02:42 Ondansetron HCl (Ondansetron Inj 2 Mg/Ml 2 Ml Vial) 4 mg IV Q6H PRN PRN Reason: Nausea Stop: 09/15/21 20:30 Sodium Chloride (Sodium Chloride 0.9% 10ml Flush) 30 ml IV Q24H TATI Stop: 08/20/21 20:32 Last Admin: 08/18/21 13:19 Dose: 30 ml Documented by: PG Care Time/CCT Total # of Minutes Spent Total Time Spent with Patient: Total time spent is greater than 50% in coordination of care (as documented) at patient's floor/unit and/or counseling patient: Coding Level of Care Code 67400 Subseq Hosp Care Lvl 3 Diagnoses Pneumonia due to COVID-19 virus U07.1; J12.82 Acute respiratory failure with hypoxia J96.01 Nausea vomiting and diarrhea R11.2; R19.7 Thrombocytopenia D69.6 Hyponatremia E87.1 Hypokalemia E87.6 Transaminitis R74.01 Fatty liver K76.0 Thyroid nodule E04.1 Obesity E66.9 Splenomegaly R16.1
[2021-08-19] MEDS: SODIUM CHLORIDE 0.9% 10ML FLUSH IV SCH (13:15)
[2021-08-19] MEDS: POTASSIUM CHLORIDE CRTAB 20 MEQ TABCR PO SCH (21:03)
[2021-08-20 08:09] LABS: BUN Creatinine Ratio 24.6 (10-20); Calcium 8.9 mg/dl (8.5-10.1); Creatinine Clr Calc Pharmacy 138.7 ml/min; Est GFR (African American) 115.1 ml/min; Est GFR (Non-African American) 99.3 ml/min; Potassium 3.6 mmol/L (3.5-5.1)
[2021-08-20] MEDS: POTASSIUM CHLORIDE CRTAB 20 MEQ TABCR PO SCH ×2 (08:29→19:26)
[2021-08-20] MEDS: ENOXAPARIN INJ 40 MG/0.4 ML SYR SQ SCH ×2 (08:29→19:27)
[2021-08-20] MEDS: dexAMETHasone 6 MG in SYRINGE 0 ML IV SCH (08:29)
[2021-08-20] MEDS ORDERED: FUROSEMIDE 20 MG in SYRINGE 0 ML IV ONE (09:00)
[2021-08-20] MEDS: REMDESIVIR 100 MG in SODIUM CHLORIDE 0.9% 230 ML IV SCH (11:49)
[2021-08-20] MEDS: SODIUM CHLORIDE 0.9% 10ML FLUSH IV SCH (12:52)
--- NOTE | 2021-08-20 15:37 | Hospitalist Progress Note ---
Date of Service August 20, 2021 Assessment & Plan (1) Pneumonia due to COVID-19 virus: Plan: Patient with symptoms that started on 08/08, here with pneumonia and acute respiratory failure with hypoxia, severe dehydration secondary to nausea/vomiting/diarrhea CT angiogram chest negative for PE but shows multifocal pneumonia marked improvement the past 48 hours, down to 2L today great response to Lasix 20mg IV qAM laying on left side -Continue dexamethasone 6 mg IV once daily, day 5 -Remdesivir x5-day course, day 5 (AST and ALT up slightly) -Continue supplemental O2 to keep pulse ox greater than 92% -Albuterol nebulizer as needed -Robitussin-DM ordered as needed as well as Tessalon Perles for cough flutter valve, incentive spirometer discharge once he is down to room air (2) Acute respiratory failure with hypoxia: Plan: As above oxygen requirements down to 2L, great response to Lasix give Lasix again tomorrow continue dexamethasone (3) Nausea vomiting and diarrhea: Plan: Secondary to Covid-19, with significant hyponatremia, hypokalemia, and inability to tolerate any p.o. except for small sips of water for several days Fortunately renal function is stable Received 3L of crystalloid total Cr stable, K stable IV Zofran as needed for vomiting - no nausea Add Imodium as needed for diarrhea - stools are becoming more formed (4) Thrombocytopenia: Plan: Platelets mildly low at 107 secondary to COVID-19 pneumonia plts normal now Okay to give Lovenox for DVT prophylaxis unless platelets drop less than 50 (5) Hyponatremia: Plan: As above, secondary to dehydration resolved (6) Hypokalemia: Plan: PO replacement K up to 3.6 (7) Transaminitis: Plan: Mild, secondary to Covid-19, but also has underlying fatty liver AST and ALT up very slightly but today is last day of Remdesivir (8) Fatty liver: Plan: Noted on CT abdomen/pelvis BMI is 40.6 Encouraged weight loss and low carbohydrate diet after discharge (9) Thyroid nodule: Plan: Incidentally noted left lobe of the thyroid nodule measuring 1.4 cm Recommended to patient that he have an outpatient thyroid ultrasound and follow- up with PCP TSH normal at 0.9 (10) Obesity: Plan: BMI 40.6 As above, recommended weight loss (11) Splenomegaly: Plan: Patient with mild to moderate splenomegaly seen on CT abdomen/pelvis Unclear if could be from viral infection but could be chronic from fatty liver Follow as an outpatient Plan: DVT prophylaxis-Lovenox 40 mg SQ twice daily Disposition- move to [address] [place] [address] hope to discharge tomorrow if on room air Admission and Anticipated Discharge Date Admission Date: August 16, 2021 Subjective feeling a lot better today, definitely the best he has felt, down to 2-3L mask eating better, stools more solid, making urine with Lasix again this morning, though not as much as yesterday discussed that if we can get him to room air will talk about discharge, he is very pleased at this idea no fever/chills, minimal cough, no chest pain ambulating independently in the room Review of Systems Review of Systems: All systems reviewed & are unremarkable except as noted in Subjective Physical Exam Physical Exam: General: well developed, well nourished, no acute distress, comfortable Neck: supple, trachea midline, normal thyroid Lungs: lungs clear bilaterally, normal respiratory effort, no accessory muscle use, no distress Heart: regular S1 and S2, no murmur, peripheral pulses normal, capillary refill normal, no edema Abdomen: soft, NT, ND, + BS, no hepatomegaly, normal to percussion Extremities: normal in appearance, no cyanosis, no petechiae, strength is 5/5 bilaterally Neuro: awake, cooperative, moves all extremities, no focal motor deficits, CN II-XII intact, sensation in extremities intact, normal speech Skin: warm, dry, no rash, normal turgor Psych: Awake, alert oriented x 3, euthymic affect Results & Data Results & Data ([facility]) Vital Signs (Past 12 Hours) Vital Signs Temp Pulse Resp BP Pulse Ox 08/20/21 15:30 36.2 C L 80 18 139/81 96 08/20/21 11:51 93 08/20/21 08:16 36.5 C 85 18 113/81 92 Laboratory Results Laboratory Results - last 24 hr 08/20/21 07:20 Sodium 142 Potassium 3.6 Chloride 103 Carbon Dioxide 34 H Anion Gap 5.0 BUN 26 H Creatinine 1.04 Est Cr Clr Drug Dosing 138.7 Est GFR ( Amer) 115.1 Est GFR (Non-Af Amer) 99.3 BUN/Creatinine Ratio 24.6 H Glucose 97 Calcium 8.9 AST 87 H ALT 151 H Medications Administered Current Inpatient Medications Acetaminophen (Acetaminophen 325 Mg Tab) 650 mg PO Q4H PRN PRN Reason: Pain or Fever Stop: 09/15/21 20:30 Al Hydrox/Mg Hydrox/Simethicone (Aluminum/Magnesium Susp 30 Ml Udc) 15 ml PO Q4H PRN PRN Reason: Dyspepsia Stop: 09/15/21 20:30 Albuterol (Albuterol 0.083% Nebu Soln 3 Ml Vial) 2.5 mg NEB Q6R PRN PRN Reason: cough or SOB Stop: 09/15/21 14:05 Benzonatate (Benzonatate 100 Mg Capsule) 100 mg PO TID PRN PRN Reason: Cough Stop: 09/15/21 20:30 Last Admin: 08/19/21 08:09 Dose: 100 mg Documented by: Enoxaparin Sodium (Enoxaparin Inj 40 Mg/0.4 Ml Syr) 40 mg SQ Q12H TATI Stop: 09/15/21 20:30 Last Admin: 08/20/21 08:29 Dose: 40 mg Documented by: Guaifenesin/Dextromethorphan (Guaifenesin/Dextrom Syrup 200mg/20mg 10ml Udc) 10 ml PO Q6H PRN PRN Reason: Cough Stop: 09/15/21 20:30 Last Admin: 08/19/21 08:09 Dose: 10 ml Documented by: Dexamethasone 6 mg/ Syringe 1.5 mls @ 1 mls/min IV DAILY TATI Stop: 08/26/21 08:59 Last Admin: 08/20/21 08:29 Dose: 1 mls/min Documented by: Loperamide HCl (Loperamide Hcl 2 Mg Cap) 2 mg PO Q6 PRN PRN Reason: diarrhea Stop: 09/15/21 20:30 Menthol (Cough Drop (Sugar Free) Sheba 24 Sheba/1 Box) 1 sheba BUCCAL PRN PRN PRN Reason: Sore Throat Stop: 09/16/21 02:42 Ondansetron HCl (Ondansetron Inj 2 Mg/Ml 2 Ml Vial) 4 mg IV Q6H PRN PRN Reason: Nausea Stop: 09/15/21 20:30 Potassium Chloride (Potassium Chloride Crtab 20 Meq Tabcr) 20 meq PO BID TATI Stop: 09/18/21 20:59 Last Admin: 08/20/21 08:29 Dose: 20 meq Documented by: Sodium Chloride (Sodium Chloride 0.9% 10ml Flush) 30 ml IV Q24H TATI Stop: 08/20/21 20:32 Last Admin: 08/20/21 12:52 Dose: 30 ml Documented by: PG Care Time/CCT Total # of Minutes Spent Total Time Spent with Patient: Total time spent is greater than 50% in coordinat ion of care (as documented) at patient's floor/unit and/or counseling patient: Coding Level of Care Code 54513 Subseq Hosp Care Lvl 3 Diagnoses Pneumonia due to COVID-19 virus U07.1; J12.82 Acute respiratory failure with hypoxia J96.01 Nausea vomiting and diarrhea R11.2; R19.7 Thrombocytopenia D69.6 Hyponatremia E87.1 Hypokalemia E87.6 Transaminitis R74.01 Fatty liver K76.0 Thyroid nodule E04.1 Obesity E66.9 Splenomegaly R16.1
[2021-08-21 08:11] LABS: Alanine Aminotransferase 184 U/L (12-78); Aspartate Aminotransferase 78 U/L (15-37)
[2021-08-21] MEDS: POTASSIUM CHLORIDE CRTAB 20 MEQ TABCR PO SCH ×2 (08:45→09:27)
[2021-08-21] MEDS: ENOXAPARIN INJ 40 MG/0.4 ML SYR SQ SCH (09:27)
[2021-08-21] MEDS: dexAMETHasone 6 MG in SYRINGE 0 ML IV SCH (09:30)
--- NOTE | 2021-08-21 14:15 | Discharge Summary ---
Date of Service August 21, 2021 Admission HPI Per Admitting Provider This patient is a 26-year-old male with history of obesity and does not follow regularly with a physician who presents to the ER with nausea/vomiting, cough, and shortness of breath. He has had symptoms of COVID-19 Since 08/08 (8 days ago) and was found to be Covid positive as an outpatient on 08/10. He has had fevers to 103.5, nausea/vomiting/diarrhea, shortness of breath, nasal congestion, bad mostly nonproductive cough, and very poor p.o. intake. Upon arrival in the ER, he was found to have a pulse ox of 84% on room air was placed on oxygen up to 4 L nasal cannula to get his pulse ox to 92%. He was tachyc ardic in the 120s and laboratory values were suggestive of dehydration with hyponatremia, hypokalemia. He also had other lab values consistent with Covid- 19 such as leukopenia and lymphopenia, thrombocytopenia, elevated D-dimer, transaminitis. His lactate and troponin were normal. He had a chest x-ray which showed multifocal airspace consolidation consistent with viral pneumonia and then had a chest CT angiogram performed which was negative for PE, but again showed multifocal pneumonia, mediastinal and hilar lymphadenopathy that is reactive, splenomegaly, and suspected esophagitis as well as fatty liver. He was given 1 L of normal saline, IV Zofran, IV Tylenol, potassium chloride 10 mEq IV x1, and albuterol nebulizer treatment, and dexamethasone 6 mg IV x1. After these interventions, he was already feeling much improved by the time I saw him and was weaned down to 2 L nasal cannula. He will be admitted for Covid-19 pneumonia along with acute respiratory care with hypoxia, and dehydration. Principal Diagnosis COVID pneumonia, acute hypoxic respiratory failure Discharge Exam General: well developed, well nourished, obese male no acute distress, comfortable Neck: supple, trachea midline, normal thyroid Lungs: clear to auscultation bilaterally, normal respiratory effort, no acc essory muscle use, no distress Heart: regular S1 and S2, no murmur, peripheral pulses normal, capillary refill normal, no edema Abdomen: soft, NT, ND, + BS, no hepatomegaly, normal to percussion Extremities: normal in appearance, no cyanosis, no petechiae, strength is 5/5 bilaterally Neuro: awake, cooperative, moves all extremities, no focal motor deficits, CN II-XII intact, sensation in extremities intact, normal speech Skin: warm, dry, no rash, normal turgor Psych: Awake, alert oriented x 3, euthymic affect Discharge Data Allergies Allergy/AdvReac Type Severity Reaction Status Date / Time No Known Allergies Allergy Unverified 08/16/21 14:10 Consultations 08/16/21 12:41 ED Decision to Admit Stat Ordered Studies 08/16/21 11:51 CT angio chest PE protocol Stat Hospital Course (1) Pneumonia due to COVID-19 virus: Patient with symptoms that started on 08/08, here with pneumonia and acute respiratory failure with hypoxia, severe dehydration secondary to nausea/vomiting/diarrhea CT angiogram chest negative for PE but shows multifocal pneumonia marked improvement the past 48 hours, down to room air at rest will check 2 step, arrange for home oxygen on exertion if needed -Continue dexamethasone 6 mg IV once daily, day 6, change to 6mg PO daily x 4 more day -Remdesivir x5-day course, completed -Continue supplemental O2 to keep pulse ox greater than 92% -Albuterol nebulizer as needed -Robitussin-DM ordered as needed as well as Tessalon Perles for cough flutter valve, incentive spirometer discharge to home today (2) Acute respiratory failure with hypoxia: As above oxygen requirements down to room air at rest, great response to Lasix check a two step and arrange for home oxygen if needed (3) Nausea vomiting and diarrhea: Secondary to Covid-19, with significant hyponatremia, hypokalemia, and inability to tolerate any p.o. except for small sips of water for several days Fortunately renal function is stable Received 3L of crystalloid total Cr stable, K stable IV Zofran as needed for vomiting - no nausea Add Imodium as needed for diarrhea - stools are becoming more formed (4) Thrombocytopenia: Platelets mildly low at 107 secondary to COVID-19 pneumonia plts normal now Okay to give Lovenox for DVT prophylaxis unless platelets drop less than 50 (5) Hyponatremia: As above, secondary to dehydration resolved (6) Hypokalemia: PO replacement K up to 3.6 eating great, no need for supplement on discharge (7) Transaminitis: Mild, secondary to Covid-19, but also has underlying fatty liver AST and ALT up very slightly on 08/20 but was last day of Remdesivir (8) Fatty liver: Noted on CT abdomen/pelvis BMI is 40.6 Encouraged weight loss and low carbohydrate diet after discharge (9) Thyroid nodule: Incidentally noted left lobe of the thyroid nodule measuring 1.4 cm Recommended to patient that he have an outpatient thyroid ultrasound and follow- up with PCP TSH normal at 0.9 (10) Obesity: BMI 40.6 As above, recommended weight loss (11) Splenomegaly: Patient with mild to moderate splenomegaly seen on CT abdomen/pelvis Unclear if could be from viral infection but could be chronic from fatty liver Follow as an outpatient DVT prophylaxis-Lovenox 40 mg SQ twice daily while admitted young active patient, no need for Xarelto at home Disposition- discharge to home Total Time Total Time Spent Total Time Spent (In Minutes): 33 minutes Total Time Includes: Examination of the Patient, Discharge Planning and Medication Reconciliation Discharge Plan Discharge Items Patient Disposition: Home - Self-Care Reason For Visit: COVID 19 PNA, HYPOXIA, DEHYDRATION Discharge Diagnosis: COVID 19 pneumonia Acute hypoxic respiratory failure Diarrhea Condition on Discharge: Good Goals: stay well nourished, well hydrated, well rested gradually increase activity Activity: Resume your previous activity Driving/Machine Use: Resume 3 days after discharge Weightbearing: Full weightbearing Non-emergency contact: Primary Care Provider Call non-emergency contact if: you have any medication questions and your symptoms worsen Follow-up/Referrals: PCP,NO [Primary Care Provider] - Diet: Regular Addtl Attending Provider Instructions: Medications: - DEXAMETHASONE: steroid for inflammation/pneumonia, take for 4 more days to complete 10 day course COVID 19 pneumonia, acute hypoxic respiratory failure responded well to dexamethasone, down to room air at rest today need to finish 4 more days of steroids get plenty of rest at home, no work next week, focus on recovering and getting stronger you do not need to be in isolation as you are 2 weeks out from onset of s ymptoms Thyroid nodule: incidental discovery, seen on CT of the chest TSH (thyroid hormone) was normal please get a routine follow up thyroid ultrasound as outpatient Fatty liver: this was seen on CT of the chest, incidental finding liver enzymes are minimally elevated, likely from virus and then Remdesivir treatment best treatment for fatty liver is healthy weight loss, 10-120% of body weight can take this issue away for you, a reasonable goal would be 30-45 lbs limit your carbohydrates (complex carbs, sweets) and focus on protein, vegetables eat smaller portions as you recover from COVID you can increase activity, try to exercise 4-5x a week for 30 minutes at a time Pending Studies at Discharge: No Stand-Alone Forms: My [facility], Work/School Release, Smoking Cessation Medications and DC Order Prescriptions: New dexamethasone 4 mg tablet 6 mg PO DAILY 4 Days Qty: 6 RF: 0 No Action No Known Home Medications RF: 0 Discharge Orders: Discharge Order (Routine); Ordered 08/21/21 Ordered By: Ray Reynolds Admission Data Admit Date/Time: 08/16/21 13:59 Attending Provider: Ray Reynolds Admit Provider: Cheryle Ernst Primary Care Provider: PCP,NO Other Providers: Cheryle Ernst Other Interventions: Discharge Summary Assessment (RN) Last Done: 08/21/21 13:59 Coding Level of Care Code D/C DAY MANAGEMENT >30 MINS Diagnoses Pneumonia due to COVID-19 virus U07.1; J12.82 Acute respiratory failure with hypoxia J96.01 Nausea vomiting and diarrhea R11.2; R19.7 Thrombocytopenia D69.6 Hyponatremia E87.1 Hypokalemia E87.6 Transaminitis R74.01 Fatty liver K76.0 Thyroid nodule E04.1 Obesity E66.9 Splenomegaly R16.1
== END 2021-08-21 15:18 | disposition home or self-care (01) | DRG 177 ==
LOC: ED 10:56 → SUATTDRO 13:59 → 2E 13:59 → 3W 08-19 12:52